=== PATIENT | female | born 2000 ===

== ENCOUNTER 2023-05-11 17:21 | Outpatient (CLI) | payer OTHER, MEDICAID, SELFPAY ==
[2023-05-14 07:03] LABS: Prolactin 12.3 ng/mL (***)
[2023-05-14 07:08] LABS: FSH 9.6 mIU/mL (***); LH 3.4 mIU/mL (***)
[2023-05-14 13:22] LABS: Testosterone Total 24 ng/dL (2-45)
[2023-05-18 16:42] LABS: Anti Mullerian Hormone,Female 3.42 ng/mL (1.02-14.63)
== END 2023-05-11 17:22 | disposition home or self-care (01) ==
PROVIDERS: Visit Provider Student in an Organized Health Care Education/Training Program
DX: N91.2 Amenorrhea, unspecified (principal)
CPT/HCPCS: 36415; 83001; 83002; 84146; 84403